=== PATIENT | female | born 1960 | race Caucasian/White ===

== ENCOUNTER → 2016-10-22 | Outpatient (CLI) | payer BC ==
[2016-10-22 12:54] LABS: Basophils # (A) 0.1 k/uL (0-0.2); Basophils % (A) 1 %; CH 28.6; CHCM 33.2; Eosinophils # (A) 0.1 k/uL (0-0.7); Eosinophils % (A) 2 %; HDW 2.68; HGB 15.5 gm/dL (11.4-16.0); Luc # (Auto) 0.19; Luc % (Auto) 3; Lymphocytes # (A) 1.3 k/uL (1.0-4.8); Lymphocytes % (A) 22 %; MCH 28.5 pg (25.0-35.0); MCHC 32.9 g/dL (31.0-37.0); MCV 86.5 fL (80.0-100.0); Mean Platelet Volume 8.3; Monocytes # (A) 0.2 k/uL (0-1.0); Monocytes % (A) 3 %; Neutrophils # (A) 4.2 k/uL (1.3-7.7); Neutrophils % (A) 69 %; RBC 5.43 m/uL (3.80-5.40); WBC (Perox) 5.89
[2016-10-22 12:59] LABS: ALT 51 U/L (9-52); AST 26 U/L (14-36)
== END | disposition home or self-care (01) ==
LOC: LABWHC1 12:16
PROVIDERS: ATTEND Psychiatry & Neurology Neurology
DX: G35 Multiple sclerosis (principal)
CPT/HCPCS: 36415; 84450; 84460; 85025

== ENCOUNTER → 2016-11-08 | Outpatient (CLI) | payer OTHER ==
--- NOTE | 2016-11-08 14:00 | MR ---
MRI of the brain with and without contrast EXAM DATE: 11/08/2016 HISTORY: Headaches. TECHNIQUE: T1-weighted sagittal, T2, FLAIR, and diffusion axial, postcontrast T1 axial and coronal vi ews of the brain are submitted. CONTRAST: 19 mL MultiHance COMPARISON: 10/16/2014 FINDINGS: There is no evidence of acute ischemia. There is an extra-axial mass paramedian to the right along the anterior interhemispheric fissure with compression of the underlying parietal cortex measuring 2.5 x 2.1 x 1.7 cm. Previously measured 2.3 x 2.1 x 1.7 cm. Craniocervical junction maintained. Sella turcica has a normal appearance. No evidence of cerebellopo ntine angle mass. WHITE MATTER: There are approximately 30 white matter lesions scattered throughout both cerebral hemisphere. There is to be a lesion within the right frontal and right parietal lobe which is increased in size from th e previous exam. No enhancing lesions. No callosal lesions. IMPRESSION: 1. Minimal increase in size of the extra-axial mass involving the right cerebral hemisphere with mass effect upon the underlying cortex appears stable. Findings still felt to be most typical of meningio ma. Other etiologies not entirely excluded. 2. There appears to be stable number of white matter lesions as discussed above with no enhancing les ions. There is increase in size of 2 lesions within the right cerebral hemisphere relative the previo us exam. Findings are compatible with nonspecific white matter changes. Demyelinating process, remote microvascular ischemia sarcoidosis, vasculitis, hypertension or Lyme's disease in the differential d iagnosis. EXAMINATION TYPE: MR brain wo/w cspine wo DATE OF EXAM: 11/08/2016 COMPARISON: 10/16/2014 HISTORY: MS TECHNIQUE: T1 sagittal and coronal, T2 sagittal, and gradient echo axial views of the cervical spine are submitted. FINDINGS: The cranial cervical junction is preserved. There is no abnormal signal seen within the sp inal cord or paraspinal soft tissues. At C2-3 there is disc desiccation but no herniation or canal stenosis. At C3-4 there is mild facet arthropathy but no disc herniation or canal stenosis. At C4-5 there is degenerative disc disease and central disc bulging but no evidence of canal stenosis or foraminal encroachment. At C5-6 there is severe degenerative disc disease with posterior spondylosis. Broad-based disc protru michelle greater paracentrally to left noted with bilateral foraminal encroachment. Borderline canal melanie nosis and mild effacement of thecal sac. Disc protrusion is greater focally paracentrally and lateral ly to left with severe left-sided foraminal encroachment. At C6-7 there is severe degenerative disc disease with broad-based disc protrusion centrally capped b y spur. Mild effacement of thecal sac with mild canal stenosis and moderate bilateral foraminal encro achment. At C7-T1 there is no disc herniation or canal stenosis. An area of increased signal along the posterior left lateral spinal cord at the C5-C6 levels suspicio us for an area of myelitis. No enhancement. Alignment is maintained with loss of the normal cervical lordosis likely related to muscular spasm. Tiny subcentimeter area of signal within the left thyroid lobe is nonspecific. Likely related to thyroid cyst. Measures approximately 8 mm. IMPRESSION: 1. Multilevel degenerative disc disease is stable. Disc protrusion at C5-C6 appears slightly progres sed paracentrally and laterally to left C5-C6. Does result in mild mass effect upon the thecal sac bu t no spinal cord contact. 2. Area of abnormal signal involving the cervical spinal cord C5 level appears stable posterior later ally on the left. Myelitis in the differential diagnosis. Other etiologies not excluded.
== END | disposition home or self-care (01) ==
LOC: RADMRIMAIN 11:59
PROVIDERS: ATTEND Psychiatry & Neurology Neurology
DX: G93.89 Other specified disorders of brain (principal); M50.221 Other cervical disc displacement at C4-C5 level; M50.321 Other cervical disc degeneration at C4-C5 level; R90.89 Other abnormal findings on diagnostic imaging of central nervous system
CPT/HCPCS: 70553; 72141; A9577

== ENCOUNTER → 2018-12-09 | Outpatient (CLI) | payer OTHER ==
--- NOTE | 2018-12-09 09:58 | US ---
EXAMINATION TYPE: US transvaginal DATE OF EXAM: 12/09/2018 COMPARISON: NONE CLINICAL HISTORY: N92.1 Excessive frequent menstruation w/irregular. 2 episodes of spotting since cyc le stopped 7 yrs ago. , TECHNIQUE: TV. Transvaginal sonographic images Date of LMP: 7yrs ago EXAM MEASUREMENTS: Uterus: 7.4 x 4.4 x 3.6 cm Endometrial Stripe: 2.3 cm Right Ovary: not seen Left Ovary: not seen 1. Uterus: Anteverted wnl 2. Endometrium: thickened 3. Right Ovary: not seen due to atrophy and bowel gas 4. Left Ovary: not seen due to atrophy and bowel gas 5. Bilateral Adnexa: wnl 6. Posterior cul-de-sac: wnl IMPRESSION: Abnormal endometrial thickening measuring up to 2.3 cm this could represent endometrial a blation, endometrial polyp, or endometrial mass. Further evaluation with sonohysterogram or direct vi sualization with biopsy is recommended.
== END | disposition home or self-care (01) ==
LOC: RADUSWWP 08:58
PROVIDERS: ATTEND Family Medicine
DX: N92.1 Excessive and frequent menstruation with irregular cycle (principal); R93.89 Abnormal findings on diagnostic imaging of other specified body structures
CPT/HCPCS: 76830

== ENCOUNTER 2020-02-02 17:43 | Emergency (ER) | payer OTHER ==
[2020-02-02 17:51] VITALS: BP 162/82; PULSE 97; RESP 18; TEMP 98.8
[2020-02-02] MEDS ORDERED: KETOROLAC 15 MG/ML 1 ML VIAL IM STA (18:11)
--- NOTE | 2020-02-02 18:15 | ED ---
General Adult HPI - General Chief complaint: Fall Stated complaint: FALL Time Seen by Provider: 02/02/20 17:52 Source: patient, RN notes reviewed Mode of arrival: ambulatory Limitations: no limitations - History of Present Illness Initial comments: 59-year-old female with a past medical history of MS presents to the emergency room for chief complaint of fall. Patient states that she was walking her dog when her foot slipped off of the side of the sidewalk. She fell onto the left wrist and hand. Patient states it is painful to move her left wrist and forearm. She denies elbow or shoulder pain. Patient is denying hitting her head. No loss of consciousness. No blood thinners. Patient states she has frequent falls because of her MS.Patient has no other complaints at this time including shortness of breath, chest pain, abdominal pain, nausea or vomiting, headache, or visual changes. - Related Data Home Medications Medication Instructions Recorded Confirmed Rosuvastatin [Crestor] 20 mg PO DAILY 02/02/20 02/02/20 Allergies Allergy/AdvReac Type Severity Reaction Status Date / Time No Known Allergies Allergy Verified 02/02/20 18:56 Review of Systems ROS Statement: Those systems with pertinent positive or pertinent negative responses have been documented in the HPI. ROS Other: All systems not noted in ROS Statement are negative. Past Medical History Additional Past Medical History / Comment(s): MS Past Surgical History: Breast Surgery, Section Past Psychological History: No Psychological Hx Reported Smoking Status: Current every day smoker Past Alcohol Use History: None Reported Past Drug Use History: None Reported General Exam Limitations: no limitations General appearance: alert, in no apparent distress Head exam: Present: atraumatic, normocephalic, normal inspection Eye exam: Present: normal appearance, PERRL, EOMI. Absent: scleral icterus, conjunctival injection, periorbital swelling ENT exam: Present: normal exam, mucous membranes moist Neck exam: Present: normal inspection, full ROM. Absent: tenderness, meningismus, lymphadenopathy Respiratory exam: Present: normal lung sounds bilaterally. Absent: respiratory distress, wheezes, rales, rhonchi, stridor Cardiovascular Exam: Present: regular rate, normal rhythm, normal heart sounds. Absent: systolic murmur, diastolic murmur, rubs, gallop, clicks GI/Abdominal exam: Present: soft, normal bowel sounds. Absent: distended, tenderness, guarding, rebound, rigid Extremities exam: Present: tenderness (Tenderness noted to the volar aspect of the left wrist. No tenderness in the left hand. Mild tenderness in the mid forearm. No tenderness in the elbow or shoulder. No scaphoid tenderness.), normal capillary refill (Capillary refill is less than 2 seconds, radial pulses 2+ in the left upper extremity.), other (Sensation intact left upper extremity.). Absent: full ROM (limited flexion/extension of the L wrist secondary to pain. Patient has full range of motion of all digits in the left hand as well as left elbow and shoulder.), pedal edema, joint swelling (No edema of the left arm.), calf tenderness Course Vital Signs 02/02/20 17:47 Temperature 98.8 F Pulse Rate 97 Respiratory 18 Rate Blood Pressure 162/82 O2 Sat by Pulse 99 Oximetry Procedures - Orthopedic Splinting/Casting Injury #1 Side: left Upper Extremity Injury Location: short arm Upper Extremity Immobilizer: volar splint Medical Decision Making - Medical Decision Making X-ray of the left hand wrist and forearm are negative. However given the patient's pain and she was splinted in a volar wrist splint secondary to concern for occult fracture versus soft tissue injury. She does not have scaphoid tenderness. She was given referral to orthopedics. She will follow up with them. She'll return if she has any worsening symptoms Disposition Clinical Impression: Wrist pain, left Disposition: HOME SELF-CARE Condition: Good Instructions (If sedation given, give patient instructions): Wrist Injury (ED) Additional Instructions: Please take Motrin and Tylenol for pain. Rest ice and elevate the left wrist. Please follow-up with orthopedics in one to 2 days. If you have any worsening symptoms return to the emergency room. Otherwise keep splint dry and in place. Is patient prescribed a controlled substance at d/c from ED?: No Referrals: Manuel Kraft Jr, DO [Primary Care Provider] - 1-2 days Marc Eden MD [STAFF PHYSICIAN] - 1-2 days Time of Disposition: 19:15
--- NOTE | 2020-02-02 18:42 | XR ---
EXAMINATION TYPE: XR forearm LT DATE OF EXAM: 02/02/2020 COMPARISON: NONE HISTORY: Pain TECHNIQUE: 2 views FINDINGS: Radius and ulna appear intact. Elbow joint appears intact. I see no fracture. IMPRESSION: Negative left forearm exam.
--- NOTE | 2020-02-02 18:49 | XR ---
EXAMINATION TYPE: XR wrist complete LT DATE OF EXAM: 02/02/2020 COMPARISON: NONE HISTORY: Pain TECHNIQUE: 4 views FINDINGS: Carpal bones are intact. I see no fracture nor dislocation. Scaphoid appears intact. IMPRESSION: Negative left wrist exam.
--- NOTE | 2020-02-02 18:51 | XR ---
EXAMINATION TYPE: XR hand complete LT DATE OF EXAM: 02/02/2020 COMPARISON: NONE HISTORY: Wrist pain TECHNIQUE: 3 views FINDINGS: Metacarpals appear intact. I see no fracture nor dislocation. Joint spaces are normal. IMPRESSION: Negative left hand exam.
== END 2020-02-02 19:26 | disposition home or self-care (01) ==
LOC: EC 17:43
DX: M25.532 Pain in left wrist (principal); F17.200 Nicotine dependence, unspecified, uncomplicated; Z79.899 Other long term (current) drug therapy
CPT/HCPCS: 73090; 73110; 73130; 99283; 29125; 96372; J1885

== ENCOUNTER → 2022-12-25 | Outpatient (CLI) | payer OTHER ==
[2022-12-25 15:34] LABS: Basophils # (A) 0.05 X 10*3/uL (0.00-0.10); Basophils % (A) 0.8 %; Eosinophils # (A) 0.12 X 10*3/uL (0.04-0.35); Eosinophils % (A) 1.8 %; HCT 44.6 % (37.2-46.3); HGB 14.2 d/dL (12.0-15.0); Lymphocytes # (A) 1.72 X 10*3/uL (0.90-5.00); Lymphocytes % (A) 26.4 %; MCH 27.2 pg (27.0-32.0); MCHC 31.8 d/dL (32.0-37.0); MCV 85.4 FL (80.0-97.0); Mean Platelet Volume 12.2 FL (9.5-12.2); Monocytes # (A) 0.41 X 10*3/uL (0.20-1.00); Monocytes % (A) 6.3 %; NRBC Per 100 WBC 0 X 10*3/uL (0.00-0.01); Neutrophils % (A) 64.4 %; Platelet Count 187 X 10*3/uL (140-440); RBC 5.22 X 10*6/uL (4.10-5.20); RDW 13.4 % (11.5-14.5); WBC 6.52 X 10*3/uL (4.50-10.00)
[2022-12-25 15:49] LABS: ALT 23 U/L (8-44); AST 25 U/L (13-35); Albumin 4.6 d/dL (3.8-4.9); Albumin/Globulin Ratio 2.19 Ratio (1.60-3.17); Alkaline Phosphatase 79 U/L (41-126); Calcium 9.8 mg/dL (8.7-10.3); Carbon Dioxide 27.2 mmol/L (21.6-31.8); Chloride 105 mmol/L (96-109); Chol/HDL Ratio 3.43 Ratio; Globulin 2.1 d/dL (1.6-3.3); Glucose 123 mg/dL (70-110); Potassium 4.7 mmol/L (3.5-5.5); Sodium 142 mmol/L (135-145); Total Bilirubin 0.5 mg/dL (0.3-1.2); Total Protein 6.7 d/dL (6.2-8.2)
== END | disposition home or self-care (01) ==
LOC: LABWHC1 09:04
PROVIDERS: ATTEND Family Medicine
DX: E78.5 Hyperlipidemia, unspecified (principal)
CPT/HCPCS: 36415; 80053; 80061; 85025